=== PATIENT | female | born 1995 | race Caucasian/White ===

== ENCOUNTER 2020-07-02 10:55 | Emergency (ER) | payer OTHER, SELFPAY ==
[~2020-07-02] VITALS: Ht 165.1 cm; Wt 96.6 kg
[2020-07-02 10:59] VITALS: BP 139/105; Ht 165.1 cm; Wt 96.6 kg
== END 2020-07-02 13:50 | disposition left against medical advice (07) ==
LOC: ED 10:55
DX: B34.9 Viral infection, unspecified (principal); J45.909 Unspecified asthma, uncomplicated; Z20.828 Contact with and (suspected) exposure to other viral communicable diseases
CPT/HCPCS: 87804; U0003